=== PATIENT | male | born 1970 | race Caucasian/White ===

== ENCOUNTER 2024-05-23 16:47 | Emergency (ER) | payer SELFPAY ==
[~2024-05-23] VITALS: Ht 188 cm; Wt 114.5 kg
[2024-05-23 16:53] VITALS: BP 157/96; PULSE 90; RESP 17; TEMP 98.1; O2SAT 98
== END 2024-05-23 20:17 | disposition left against medical advice (07) ==
LOC: ER 16:48
DX: F10.129 Alcohol abuse with intoxication, unspecified (principal); Z53.21 Procedure and treatment not carried out due to patient leaving prior to being seen by health care provider; Y90.9 Presence of alcohol in blood, level not specified

== ENCOUNTER 2024-06-15 01:26 | Emergency (ER) | payer MEDICARE ==
[~2024-06-15] VITALS: Ht 182.9 cm; Wt 127.3 kg
[2024-06-15] MEDS ORDERED: CefTRIAXone 2gm/NS 100ml IVPB 50 ML IV ONE (02:00)
[2024-06-15 02:09] LABS: BASOPHILS % (AUTO) 0.5 % (0-1); EOSINOPHILS % (AUTO) 0.7 % (0-6); HEMATOCRIT 42.6 % (42.0-52.0); HEMOGLOBIN 14.9 g/dl (14.0-17.9); LYMPHOCYTES # (AUTO) 0.5 X10'3 (1.1-4.8); LYMPHOCYTES % (AUTO) 10.5 % (21-51); MEAN CORPUSCULAR HEMOGLOBIN 34.5 PG (27.0-31.0); MEAN CORPUSCULAR HGB CONC 35.1 g/dL (33.0-36.5); MEAN CORPUSCULAR VOLUME 98.2 FL (78-98); MEAN PLATELET VOLUME 6.7 FL (7.4-10.4); MONOCYTES # (AUTO) 0.5 X10'3 (0-0.9); MONOCYTES % (AUTO) 9.7 % (2-12); NEUTROPHILS # (AUTO) 3.7 X10'3 (1.8-7.7); NEUTROPHILS % (AUTO) 78.6 % (42-75); PLATELET COUNT 126 X10'3 (140-440); RED BLOOD COUNT 4.34 X10'6 (4.70-6.10); RED CELL DISTRIBUTION WIDTH 13.9 % (11.5-14.5); WHITE BLOOD COUNT 4.8 X10'3 (4.5-11.0)
[2024-06-15 02:23] LABS: PROTHROMBIN TIME 11.6 SECONDS (9.0-12.0)
[2024-06-15] MEDS: azithromycin/NS 500mg/250ml 250 ML IV ONE (02:23)
[2024-06-15 02:24] LABS: APTT 27 SECONDS (22-32); INR 1.1 INR
[2024-06-15] MEDS: normal saline 1000ML IV soln IVB ONE (02:26)
[2024-06-15 02:35] LABS: ALANINE AMINOTRANSFERASE 123 U/L (12-78); ALBUMIN 3.2 G/DL (3.4-5.0); ALBUMIN/GLOBULIN RATIO 0.7 (1.1-1.5); ALKALINE PHOSPHATASE 104 IU/L (46-116); ANION GAP 10 (8-16); ASPARTATE AMINO TRANSFERASE 234 U/L (10-37); BILIRUBIN,TOTAL 0.6 MG/DL (0.1-1.0); BLOOD UREA NITROGEN 9 MG/DL (7-18); BUN/CREATININE RATIO 10.7 (10.0-20.0); CHLORIDE 100 MMOL/L (99-107); CREATININE 0.84 MG/DL (0.60-1.10); GLUCOSE 121 MG/DL (70-104); POTASSIUM 3.3 MMOL/L (3.5-5.1); SODIUM 138 MMOL/L (135-145); TOTAL CARBON DIOXIDE 28.4 MMOL/L (24-32); TOTAL PROTEIN 7.8 G/DL (6.4-8.2); eCRCL 108 ML/MIN; eGFR > 90 ML/MIN
[2024-06-15 02:39] LABS: C-REACTIVE PROTEIN 0.43 MG/DL (0.0-0.5); CREATINE KINASE 220 U/L (39-308); ETHANOL 98 MG/DL (<10); FREE T4 (FREE THYROXINE) 0.89 NG/DL (0.73-1.40); LIPASE 53 U/L (16-77); MAGNESIUM 1.2 MG/DL (1.5-2.4); THYROID STIMULATING HORMONE 2.41 ulU/ml (0.34-4.50)
[2024-06-15] MEDS: LORazepam 2 mg/ml vial IV ONE (02:40)
[2024-06-15] MEDS: CefTRIAXone 2gm/D5W 50ml BAG 50 ML IV ONE (03:15)
[2024-06-15] MEDS: normal saline 1000ml 1,000 ML IV ONE (03:16)
[2024-06-15] MEDS: magnesium sulf-water 2g/50mL 50 ML IV ONE (03:51)
[2024-06-15] MEDS: acetaminophen 1,000mg/100ml IV 100 ML IV SCH (04:19)
[2024-06-15 04:28] LABS: BILIRUBIN,URINE NEGATIVE (Neg); CLARITY,URINE CLEAR (Clear); COLOR,URINE YELLOW (Yellow); GLUCOSE, URINE NEGATIVE (Neg); KETONES,URINE NEGATIVE (Neg); LEUKOCYTE ESTERASE ,URINE NEGATIVE (Neg); NITRITES, URINE NEGATIVE (Neg); OCCULT BLOOD,URINE NEGATIVE (Neg); PROTEIN,URINE NEGATIVE (Neg)
[2024-06-15 04:36] LABS: UA COLLECTION TYPE CLN CATCH MIDSTREAM
[2024-06-15 04:57] LABS: URINE AMPHETAMINE SCREEN NEGATIVE (Neg); URINE BARBITUATE SCREEN NEGATIVE (Neg); URINE BENZODIAZEPINES SCREEN POSITIVE (Neg); URINE CANNABINOID SCREEN NEGATIVE (Neg); URINE COCAINE SCREEN NEGATIVE (Neg); URINE METHADONE SCREEN NEGATIVE (Neg); URINE OPIATE SCREEN NEGATIVE (Neg); URINE PHENCYCLIDINE SCREEN NEGATIVE (Neg)
[2024-06-15] MEDS ORDERED: NO HOME MEDS (05:14)
[2024-06-15 06:00] VITALS: BP 159/105; PULSE 102; RESP 16; TEMP 98.8; O2SAT 95
== END 2024-06-15 06:12 | disposition home or self-care (01) ==
LOC: ER 01:27
DX: J10.1 Influenza due to other identified influenza virus with other respiratory manifestations (principal); F10.229 Alcohol dependence with intoxication, unspecified; Z20.822 Contact with and (suspected) exposure to COVID-19; Z59.01 Sheltered homelessness
CPT/HCPCS: 36415; 71046; 80053; 80305; 81003; 82550; 83605; 83690; 83735; 84439; 84443; 84484; 85025; 85610; 85651; 85730; 86140; 87040; 87502; 87503; 87811; 96365; 96366; 96367; 96368; 96375; 99285; G0480; J0131; J0456; J0696; J2060; J7030; 80320